=== PATIENT | male | born 1955 | race Caucasian/White ===

== ENCOUNTER 2016-12-06 17:08 | Emergency (ER) | payer OTHER ==
[2016-12-06] MEDS ORDERED: Acetaminophen/Codeine 30-300mg Tablet ONE (17:22)
[2016-12-06] MEDS ORDERED: Penicillin V Potassium 250 MG TAB ONE ×2 (17:22→17:24)
== END 2016-12-06 17:30 | disposition home or self-care (01) ==
LOC: MADERS 17:08
DX: K04.7 Periapical abscess without sinus (principal); R59.0 Localized enlarged lymph nodes; I10 Essential (primary) hypertension; Z79.899 Other long term (current) drug therapy
CPT/HCPCS: 99282